=== PATIENT | female | born 1955 | race American Indian/Alaskan Native ===

== ENCOUNTER 2017-02-26 13:14 | Outpatient (CLI) | payer BC ==
--- NOTE | 2017-02-26 15:26 | Mammography Report ---
Bilateral mammogram: Compared to 06/28/15. CAD study utilized. Findings: Predominance adipose tissue bilaterally. No mass or microcalcification. Benign calcification left breast. Benign axillary nodes. Impression: Benign findings. Annual followup recommended. BI-RADS CATEGORY: 2 = Benign ACR BI-RADS MAMMOGRAPHIC CODES: 0 = Needs additional imaging evaluation; 1 = Negative; 2 = Benign; 3 = Probably benign; 4 = Suspicious; 5 = Malignant; 6 = Known biopsy-proven malignancy COMMENT: 1. Dense breast tissue, i.e., adenosis, fibrocystic changes, etc., may obscure an underlying neoplasm. 2. Approximately 10% of cancers are not detected with mammography. 3. A negative mammography report should not delay biopsy if a clinically suspicious mass is present. COMMENT: Patient follow-up letters are generated in [employer].
== END 2017-02-26 13:15 | disposition home or self-care (01) ==
LOC: MAMMO 13:14
DX: Z12.31 Encounter for screening mammogram for malignant neoplasm of breast (principal)
CPT/HCPCS: 77067; G0202

== ENCOUNTER 2018-03-09 09:17 | Outpatient (CLI) | payer BC ==
--- NOTE | 2018-03-09 13:34 | Mammography Report ---
BILATERAL DIGITAL SCREENING MAMMOGRAM with CAD: 03/09/18 09:17:00 CLINICAL: Routine screening. COMPARISON:02/26/17 FINDINGS: The breasts are heterogeneously dense, which may obscure small masses. No mass, architectural distortion or suspicious calcifications. IMPRESSION: No mammographic evidence of malignancy. BI-RADS CATEGORY: 1 - - Negative RECOMMENDATION: Routine mammographic screening in one year. COMMENT: Patient follow-up letters are generated by our [employer] application.
== END 2018-03-09 09:18 | disposition home or self-care (01) ==
LOC: MAMMO 09:17
PROVIDERS: ATTEND Family Medicine
DX: Z12.31 Encounter for screening mammogram for malignant neoplasm of breast (principal)
CPT/HCPCS: 77067

== ENCOUNTER 2019-05-12 13:47 | Outpatient (CLI) | payer MEDICARE ==
--- NOTE | 2019-05-15 11:57 | Mammography Report ---
BILATERAL DIGITAL SCREENING MAMMOGRAM WITH CAD INDICATION: Routine screening mammography. TECHNIQUE: Digital bilateral 2D mammography was obtained in the craniocaudal and mediolateral obliq ue projections. This examination was interpreted with the benefit of Computer-Aided Detection analysi s. COMPARISON: 03/09/2018 FINDINGS: Breast Density: The breasts are heterogeneously dense, which may obscure small masses. No mass, architectural distortion or suspicious calcifications. IMPRESSION:No mammographic evidence of malignancy. BI-RADS Category 1: Negative. No mammographic evidence of malignancy. Recommend routine screening m ammography in one year. A "normal" or negative report should not discourage follow up or biopsy of a clinically significant f inding. A written summary of these findings will be mailed to the patient. The patient will be entered into a mammography reporting system which will generate a reminder letter for the patient's next appointmen t at the appropriate interval. The [employer] recommends yearly mammograms starting at age 40 and continuing as l hitesh as a woman is in good health. Breast MRI is recommended for women with an approximate 20-25% or greater lifetime risk of breast cancer, including women with a strong family history of breast or ova pepper cancer or who have been treated for Hodgkin's disease. Signer Name: Babak Galindo MD Signed: 05/15/2019 11:53 AM Workstation Name: [id number]
== END 2019-05-12 13:48 | disposition home or self-care (01) ==
LOC: MAMMO 13:47
PROVIDERS: ATTEND Nurse Practitioner Family
DX: Z12.31 Encounter for screening mammogram for malignant neoplasm of breast (principal); Z78.0 Asymptomatic menopausal state
CPT/HCPCS: 77067

== ENCOUNTER 2021-06-23 09:43 | Outpatient (CLI) | payer MEDICARE ==
--- NOTE | 2021-06-23 10:41 | Mammography Report ---
DIGITAL SCREENING MAMMOGRAM WITH CAD, 06/23/2021 CLINICAL INFORMATION / INDICATION: Routine screening mammography. SCREENING MAMMOGRAM TECHNIQUE: Digital bilateral 2D mammography was obtained in the craniocaudal and mediolateral obliqu e projections. This examination was interpreted with the benefit of Computer-Aided Detection analysis . COMPARISON: 11/13/2011 through 06/20/2020. FINDINGS: Breast Density: There are scattered areas of fibroglandular density. No dominant mass, suspicious calcifications, or architectural distortion in either breast. IMPRESSION: No mammographic evidence of malignancy. Follow up recommendation: Routine yearly BI-RADS Category 1: Negative. A "normal" or negative report should not discourage follow up or biopsy of a clinically significant f inding. A written summary of these findings will be mailed to the patient. The patient will be entered into a mammography reporting system which will generate a reminder letter for the patient's next appointmen t at the appropriate interval. The [employer] recommends yearly mammograms starting at age 40 and continuing as l hitesh as a woman is in good health. Breast MRI is recommended for women with an approximate 20-25% or greater lifetime risk of breast cancer, including women with a strong family history of breast or ova pepper cancer or who have been treated for Hodgkin's disease. Signer Name: Gaurav Petty MD Signed: 06/23/2021 10:36 AM Workstation Name: [id number]
== END 2021-06-23 09:44 | disposition home or self-care (01) ==
LOC: MAMMO 09:43
PROVIDERS: ATTEND Family Medicine
DX: Z12.31 Encounter for screening mammogram for malignant neoplasm of breast (principal); N64.89 Other specified disorders of breast
CPT/HCPCS: 77067

== ENCOUNTER 2022-02-09 20:28 | Emergency (ER) | payer MEDICARE | END 2022-02-10 08:02 | disposition left against medical advice (07) | LOC: ED 20:28 | DX: S91.119A Laceration without foreign body of unspecified toe without damage to nail, initial encounter (principal); Z53.21 Procedure and treatment not carried out due to patient leaving prior to being seen by health care provider; X58.XXXA Exposure to other specified factors, initial encounter; Y93.9 Activity, unspecified; Y92.89 Other specified places as the place of occurrence of the external cause; Y99.8 Other external cause status ==

== ENCOUNTER 2022-06-25 09:13 | Outpatient (CLI) | payer MEDICARE ==
--- NOTE | 2022-06-26 17:59 | Mammography Report ---
DIGITAL SCREENING MAMMOGRAM WITH CAD, 06/25/2022 CLINICAL INFORMATION / INDICATION: Routine screening mammography. TECHNIQUE: Digital bilateral 2D mammography was obtained in the craniocaudal and mediolateral oblique projections. This examination was interpreted with the benefit of Computer-Aided Detection analysis. COMPARISON: 11/13/2011 through 06/23/2021. FINDINGS: Breast Density: There are scattered areas of fibroglandular density. No dominant mass, suspicious calcifications, or architectural distortion in either breast. IMPRESSION: No mammographic evidence of malignancy. Follow up recommendation: Routine yearly screening mammogram. BI-RADS Category 1: NEGATIVE A "normal" or negative report should not discourage follow up or biopsy of a clinically significant f inding. A written summary of these findings will be mailed to the patient. The patient will be entered into a mammography reporting system which will generate a reminder letter for the patient's next appointmen t at the appropriate interval. The [employer] recommends yearly mammograms starting at age 40 and continuing as l hitesh as a woman is in good health. Breast MRI is recommended for women with an approximate 20-25% or greater lifetime risk of breast cancer, including women with a strong family history of breast or ova pepper cancer or who have been treated for Hodgkin's disease. Signer Name: Gaurav Petty MD Signed: 06/26/2022 5:55 PM Workstation Name: [facility]
== END 2022-06-25 09:14 | disposition home or self-care (01) ==
LOC: MAMMO 09:13
PROVIDERS: ATTEND Family Medicine
DX: Z12.31 Encounter for screening mammogram for malignant neoplasm of breast (principal)
CPT/HCPCS: 77067